=== PATIENT | female | born 1995 | race Caucasian/White ===

== ENCOUNTER 2017-04-08 19:26 | Emergency (ER) | payer OTHER | END 2017-04-09 01:35 | disposition home or self-care (01) | LOC: FTE 19:26 | DX: B00.2 Herpesviral gingivostomatitis and pharyngotonsillitis (principal) | CPT/HCPCS: 99284; Z7502 ==

== ENCOUNTER 2017-09-13 16:17 | Emergency (ER) | payer OTHER | END 2017-09-13 19:03 | disposition home or self-care (01) | LOC: FTE 16:17 | DX: L72.0 Epidermal cyst (principal) | CPT/HCPCS: 99282 ==